=== PATIENT | female | born 1980 | race American Indian/Alaskan Native ===

== ENCOUNTER 2021-01-27 07:24 | Outpatient (CLI) | payer OTHER | END 2021-01-27 09:40 | disposition home or self-care (01) | LOC: NST 07:24 | PROVIDERS: ATTEND Obstetrics & Gynecology Maternal & Fetal Medicine | DX: Z34.83 Encounter for supervision of other normal pregnancy, third trimester (principal) ==

== ENCOUNTER 2021-02-14 13:19 | Outpatient (CLI) | payer OTHER | END 2021-02-14 13:41 | disposition home or self-care (01) | LOC: NST 13:19 | PROVIDERS: ATTEND Obstetrics & Gynecology | DX: Z34.83 Encounter for supervision of other normal pregnancy, third trimester (principal) ==

== ENCOUNTER 2021-03-07 15:32 | Outpatient (CLI) | payer OTHER | END 2021-03-07 16:00 | disposition home or self-care (01) | LOC: NST 15:32 | PROVIDERS: ATTEND Obstetrics & Gynecology Maternal & Fetal Medicine | DX: Z34.83 Encounter for supervision of other normal pregnancy, third trimester (principal) ==

== ENCOUNTER 2021-03-25 07:15 | Outpatient (CLI) | payer OTHER | END 2021-03-25 07:30 | disposition home or self-care (01) | LOC: NST 07:15 | PROVIDERS: ATTEND Obstetrics & Gynecology | DX: Z34.83 Encounter for supervision of other normal pregnancy, third trimester (principal) ==